=== PATIENT | female | born 1990 | race Caucasian/White ===

== ENCOUNTER 2017-01-19 18:40 | Emergency (ER) | payer SELFPAY ==
[~2017-01-19] VITALS: Ht 170.2 cm; Wt 98.0 kg
[2017-01-19] MEDS ORDERED: KETOROLAC 60MG/2ML VIAL IM ONE (20:30)
[2017-01-19 21:33] VITALS: BP 121/70
== END 2017-01-19 22:40 | disposition home or self-care (01) ==
LOC: ER 20:42
DX: S19.80XA Other specified injuries of unspecified part of neck, initial encounter (principal); V49.40XA Driver injured in collision with unspecified motor vehicles in traffic accident, initial encounter; Y93.89 Activity, other specified; Y92.410 Unspecified street and highway as the place of occurrence of the external cause; Y99.8 Other external cause status
CPT/HCPCS: 81025; 96372; 99283; J1885

== ENCOUNTER 2017-06-07 22:50 | Emergency (ER) | payer SELFPAY ==
[~2017-06-07] VITALS: Ht 170.2 cm; Wt 70.3 kg
[2017-06-08] MEDS ORDERED: ONDANSETRON 4MG ODT PO STA (03:57)
[2017-06-08] MEDS ORDERED: KETOROLAC 30MG/ML VIAL IM STA (03:57)
[2017-06-08 04:25] LABS: BASOPHILS % 0.7 % (0.0-2.0); EOSINOPHILS % 2.4 % (0.0-5.0); HEMATOCRIT. 33.5 % (36.0-48.0); HEMOGLOBIN. 10.9 g/dL (12.0-16.0); LYMPHOCYTES % 37.4 % (20.0-50.0); MEAN CORPUSCULAR HEMOGLOBIN 27.6 pg (28.0-32.0); MEAN CORPUSCULAR VOLUME 84.4 fL (81.0-99.0); MEAN PLATELET VOLUME 8.7 fl (7.4-10.4); MONOCYTES % 7.9 % (2.0-8.0); NEUTROPHILS % 51.6 % (40.0-76.0); PLATELET 230 x1000/uL (130-400); RED BLOOD CELL COUNT 3.97 mill/uL (4.2-5.4); RED CELL DISTRIBUTION WIDTH 15.1 % (11.6-14.6)
[2017-06-08 04:31] LABS: CLARITY URINE CLEAR (CLEAR); COLOR URINE YELLOW (YELLOW); GLUCOSE URINE NEGATIVE (NEGATIVE); KETONES URINE NEGATIVE (NEGATIVE); LEUKOCYTE ESTERASE URINE NEGATIVE (NEGATIVE); NITRITE URINE NEGATIVE (NEGATIVE); OCCULT BLOOD URINE NEGATIVE (NEGATIVE); PH URINE 5.5 (4.5-8.0); PROTEIN URINE NEGATIVE (NEGATIVE); SPECIFIC GRAVITY URINE 1.023 (1.005-1.030)
[2017-06-08 04:33] LABS: PROTHROMBIN TIME 10.5 sec (9.4-11.6)
[2017-06-08 04:41] LABS: CARBON DIOXIDE 27 mEq/L (21-32); CHLORIDE 106 mEq/L (98-107)
[2017-06-08] MEDS ORDERED: LIDOCAINE HCL 1% 20ML VIAL (Pyxis) INJ INFIL ONE (06:30)
[2017-06-08] MEDS ORDERED: CEFTRIAXONE SODIUM 1 G/VIAL IM ONE (06:30)
[2017-06-08 06:56] VITALS: BP 115/66
== END 2017-06-08 07:00 | disposition home or self-care (01) ==
LOC: ER 23:49
DX: R10.32 Left lower quadrant pain (principal); K59.00 Constipation, unspecified; R19.7 Diarrhea, unspecified; F17.200 Nicotine dependence, unspecified, uncomplicated
CPT/HCPCS: 36415; 76830; 76856; 80053; 81003; 81025; 83690; 85025; 85610; 96372; 99285; J0696; J1885; J3490; Q0162; Z7610